=== PATIENT | male | born 1950 | race Caucasian/White ===

== ENCOUNTER 2017-02-19 07:15 | Day surgery (SDC) | payer MEDICARE ==
[2017-02-17 17:12] VITALS: BMI 34.8
[~2017-02-19 07:15] MED LIST: LACTATED RINGERS 1,000 ML IV SCH
[2017-02-19 07:30] VITALS: RESP 16; TEMP 99.1
[2017-02-19] MEDS ORDERED: LACTATED RINGERS 1,000 ML IV ONE (07:41)
[2017-02-19] MEDS ORDERED: PROPOFOL 10 MG/ML 20 ML VIAL IV ONE (08:04)
--- NOTE | 2017-02-19 08:22 | P.PCN ---
Date of Procedure: 02/19/17 Procedure(s) Performed: BRIEF HISTORY: Patient is a 66-year-old pleasant white male, scheduled for an elective colonoscopy as a part of screening for colorectal neoplasia. PROCEDURE PERFORMED: Colonoscopy. PREOPERATIVE DIAGNOSIS: Screening for colon cancer. IV sedation per Anesthesia. PROCEDURE: After informed consent was obtained, the patient, was brought into the endoscopy unit. IV sedation was administered by Anesthesia under continuous monitoring. Digital rectal examination was normal. Initially the Olympus CF- 160 flexible video colonoscope was then inserted in the rectum, gradually advanced into the cecum without any difficulty. Careful examination was performed as the scope was gradually being withdrawn. Ileocecal valve and the appendiceal orifice were visualized and appeared normal. Prep was excellent. Mucosa of the cecum, ascending colon, transverse colon, descending colon, sigmoid colon, and rectum appeared normal. Retroflexion was performed in the rectum and no lesions were seen. The patient tolerated the procedure well. IMPRESSION: Normal-appearing colon from rectum to cecum with no evidence of colorectal neoplasia. RECOMMENDATIONS: Findings of this examination were discussed with the patient as well as his family. He was advised to have a repeat screening colonoscopy in 10 years.
[2017-02-19 08:42] VITALS: BP 122/60; PULSE 66
== END 2017-02-19 08:57 | disposition home or self-care (01) ==
LOC: ORWHC2ENDO 07:15
PROVIDERS: ATTEND Internal Medicine Gastroenterology
DX: Z12.11 Encounter for screening for malignant neoplasm of colon (principal); I10 Essential (primary) hypertension; G47.33 Obstructive sleep apnea (adult) (pediatric); E66.01 Morbid (severe) obesity due to excess calories; Z68.34 Body mass index [BMI] 34.0-34.9, adult; Z88.8 Allergy status to other drugs, medicaments and biological substances; Z79.82 Long term (current) use of aspirin; Z79.899 Other long term (current) drug therapy
CPT/HCPCS: G0121; J2704

== ENCOUNTER → 2019-10-11 | Outpatient (CLI) | payer MEDICARE ==
--- NOTE | 2019-10-11 13:05 | CT ---
EXAMINATION TYPE: CT facial bones wo con DATE OF EXAM: 10/11/2019 COMPARISON: None HISTORY: Acute recurrent sinusitis CT DLP: 655.4 mGycm Automated exposure control for dose reduction was used. TECHNIQUE: CT scan of the sinuses is performed without contrast, axial images are obtained, coronal r eformatted images are also reviewed. FINDINGS: Sphenoid sinus shows some inflammatory change extending into the posterior ethmoids. The pa ranasal sinuses including the frontal, ethmoid and maxillary sinuses bilaterally are well-aerated wit hout abnormal opacification. The ostiomeatal complex is patent bilaterally on the coronal images. Visualized portion of mastoid air cells show no abnormal opacification. The globes are intact bilate rally. There is a deviated nasal septum. IMPRESSION: The findings suggest chronic sinusitis involving the sphenoid sinus, posterior ethmoids
== END | disposition home or self-care (01) ==
LOC: RADCTMAIN 10:26
PROVIDERS: ATTEND Internal Medicine Geriatric Medicine
DX: J01.91 Acute recurrent sinusitis, unspecified (principal)
CPT/HCPCS: 70486

== ENCOUNTER → 2022-10-09 | Outpatient (CLI) | payer MEDICARE ==
--- NOTE | 2022-10-09 08:36 | CT ---
EXAMINATION TYPE: CT sinus wo con DATE OF EXAM: 10/09/2022 COMPARISON: 10/11/2019 HISTORY: Deviated nasal septum CT DLP: 674.00 mGycm CONTRAST: 0 mL of Isovue 300 The paranasal sinuses are examined in the axial plane at 2 mm thick sections. Reconstructed images i n the coronal plane were obtained. There is dental amalgam scatter artifact The maxillary sinuses are clear. The ethmoid air cells are clear. The sphenoid sinuses are clear. The frontal sinuses are clear. Mastoid air cells are clear. Maxillary spine is intact. The septum is evaluated. There is septal deviation to the left. Couple of small septal perforations may be at the inferior septum. These were not identified previously. There are prior uncinectomies. Ethmoidectomies been performed. IMPRESSIONS: 1. Left septal deviation. Couple of septal perforations may be present.
== END | disposition home or self-care (01) ==
LOC: RADCTMAIN 07:46
PROVIDERS: ATTEND Otolaryngology
DX: J34.2 Deviated nasal septum (principal)
CPT/HCPCS: 70486